=== PATIENT | male | born 1990 | race Two or more races ===

== ENCOUNTER 2025-02-11 01:54 | Emergency (ER) | payer OTHER ==
[~2025-02-11] VITALS: Ht 185.4 cm; Wt 96.8 kg
--- NOTE | 2025-02-11 02:46 | ED.PDOC ---
GI ASSESSMENT HPI Comments 34-year-old male who came to emergency room to the abdominal pain. Patient denies any medical problems, denies any abdominal surgeries. Patient known alcohol drinker, has been binge drinking the past 4-5 days, using marijuana and nicotine. At around 1:00 a.m. today, patient woke up and he started having epig astric abdominal pain, sharp, burning, radiating to both flanks, in associated with bouts of nausea and vomiting. States pain is progressively worsening. Chief Complaint: Abdominal Pain Time Seen by MD: 02:44 Reviewed Notes: Nurses Notes Allergies: Coded Allergies: Penicillins (Verified Allergy, Unknown, 02/11/25) Information Source: Patient, Spouse Mode of Arrival: Ambulatory Timing: Hours Duration: Since onset Prehospital treatment: None Quality: Burning, Sharp Vomitus: Watery Stool: Normal Severity: Moderate Recent: Ingestion of ETOH Pain Location: Epigastric Modifying Factors: Nothing Associated sign and symptoms: Nausea, Vomiting, Abdominal Pain Review of Systems REVIEW OF SYSTEMS: No fever, no chills, or fatigue HEENT: No sore throat, no earache, no congestion, no neck pain. Cardiac: No chest pain. No palpitations. Lungs: No shortness of breath, no cough. GI: (+) nausea, (+) vomiting, no diarrhea, no constipation, (+) abdominal pain : No dysuria, frequency, or urgency. No hematuria. Musculoskeletal: No joint pain , no joint swelling, no extremity edema. Skin: No rash, no itching. Neuro: No headache, no dizziness, no weakness Vital Signs Vital Signs Date Time Temp Pulse Resp B/P (MAP) Pulse Ox O2 Delivery O2 Flow Rate FiO2 02/11/25 08:03 100 16 117/65 (82) 95 02/11/25 07:38 98.2 98.2 02/11/25 07:35 Room Air* 0 21 Physical Exam General: Awake, alert and oriented. Patient appears uncomfortable Skin: Skin in warm, dry and intact. Appropriate color for ethnicity. Nailbeds pink with no cyanosis. HEENT: The head is normocephalic and atraumatic. Conjunctivae are clear without exudates or hemorrhage. Sclera is non-icteric. EOM are intact. No signs of ny stagmus. Eyelids are normal in appearance without swelling or lesions. Oral mucosa is pink and moist Neck: The neck is supple with normal range of motion. No JVD. Cardiac: Heart rate and rhythm are normal. No murmurs, gallops, or rubs are auscultated. Respiratory: No signs of respiratory distress. Lung sounds are clear in all lobes bilaterally without rales, rhonchi, or wheezes. Abdominal: Epigastric tenderness to palpation with guarding. No abdominal distention. Bowel sounds are present and normoactive in all four quadrants. Extremities: Upper and lower extremities are atraumatic in appearance without deformity or edema. Neurological: The patient is awake, alert and oriented to person, place, and time with normal speech. Speech is clear. There is no facial asymmetry. Past Medical History PAST MEDICAL HISTORY: Denies Surgical History: Denies all surgeries Family History Family History: Reviewed,noncontributory to illness Social History Smoker: Non-Smoker Alcohol: Heavy Drugs: Marijuana Lives In: Home Was a procedure done? Was a procedure done?: No GI differential Dx Differential Diagnosis: Appendicitis, Aortic dissection, Cholecystitis, Diverticular disease, Esophageal rupture, Esophagitis, Gastritis/PUD, Gastroenteritis, GI hemorrhage, Hepatitis, Inflammatory BD, Ischemic Bowel, Pancreatitis, UTI, Urolithiasis, Electrolyte Imbalance, Food Poisoning, Impaction, Anemia, Stress Ulcer, Other X-Ray, Labs, Meds, VS Vital Signs Date Time Temp Pulse Resp B/P (MAP) Pulse Ox O2 Delivery O2 Flow Rate FiO2 02/11/25 08:03 100 16 117/65 (82) 95 02/11/25 07:38 98.2 101 16 105/43 (63) 96 98.2 02/11/25 07:35 101 16 96 Room Air* 0 21 02/11/25 06:50 103 22 133/53 02/11/25 06:30 86 21 128/65 (86) 96 02/11/25 06:04 101 24 133/53 02/11/25 05:15 81 20 96 Nasal Cannula* 2 28 02/11/25 04:30 133/53 02/11/25 04:20 103 19 154/82 (106) 95 02/11/25 04:20 103 19 95 Nasal Cannula* 2 28 02/11/25 04:17 154/82 02/11/25 04:00 105 02/11/25 02:06 98.2 94 18 137/81 (99) 98 98.2 Lab Test 02/11/25 02:30 Range/Units White Blood Count 21.2 H 4.4-10.8 10^3/uL Red Blood Count 5.03 4.5-5.90 10^6/uL Hemoglobin 15.5 13.5-17.5 g/dL Hematocrit 45.2 41.0-53.0 % Mean Corpuscular Volume 89.9 80.0-100.0 fL Mean Corpuscular Hemoglobin 30.7 28.0-32.0 pg Mean Corpuscular Hemoglobin Concent 34.2 32.0-36.0 g/dL Red Cell Distribution Width 13.3 11.8-14.3 % Platelet Count 284 140-450 10^3/uL Mean Platelet Volume 8.2 6.9-10.8 fL Neutrophils (%) (Auto) 87.1 H 37.0-80.0 % Lymphocytes (%) (Auto) 6.1 L 10.0-50.0 % Monocytes (%) (Auto) 6.6 0.0-12.0 % Eosinophils (%) (Auto) 0.1 0.0-7.0 % Basophils (%) (Auto) 0.1 0.0-2.0 % Neutrophils # (Auto) 18.4 H 1.6-8.6 10 ^3/uL Lymphocytes # (Auto) 1.3 0.4-5.4 10 ^3/uL Monocytes # (Auto) 1.4 H 0-1.3 10 ^3/uL Eosinophils # (Auto) 0 0-0.8 10 ^3/uL Basophils # (Auto) 0 0-0.2 10 ^3/uL Nucleated Red Blood Cells 0.0 % Sodium Level 131 L 136-145 mmol/L Potassium Level 3.6 3.5-5.1 mmol/L Chloride Level 97 L 98-107 mmol/L Carbon Dioxide Level 24 20-31 mmol/L Anion Gap 10 5-15 Blood Urea Nitrogen 9 9-23 mg/dL Creatinine 0.98 0.700-1.30 mg/dL Glomerular Filtration Rate Calc 104 >90 mL/min BUN/Creatinine Ratio 9.2 L 10.0-20.0 Serum Glucose 140 H 74-106 mg/dL Calcium Level 9.1 8.7-10.4 mg/dL Total Bilirubin 0.5 0.2-1.0 mg/dL Aspartate Amino Transferase (AST) 17 13-40 U/L Alanine Aminotransferase (ALT) 25 7-40 U/L Alkaline Phosphatase 55 46-116 U/L Total Protein 7.6 5.7-8.2 g/dL Albumin 4.7 3.2-4.8 g/dL Plasma/Serum Blood Alcohol 120.9 H <10 mg/dL Current Medications Medications (Trade) Dose Ordered Sig/Nicolle Route Start Time Stop Time Status Last Admin Ondansetron HCl (Zofran Po) 4 mg ONCE ONCE PO 02/11/25 02:30 02/11/25 02:31 DC 02/11/25 02:47 Al Hydrox/Mg Hydrox/Simethicone (Maalox Plus) 30 ml ONCE ONCE PO 02/11/25 02:30 02/11/25 02:31 DC 02/11/25 02:48 Lidocaine HCl (Xylocaine 2% Viscous) 10 ml ONCE ONCE PO 02/11/25 02:30 02/11/25 02:31 DC 02/11/25 02:48 Sodium Chloride 1,000 ml @ 1,000 mls/hr Q1H ONCE IV 02/11/25 04:00 02/11/25 04:59 DC 02/11/25 04:17 Metoclopramide HCl (Reglan Injection) 5 mg ONCE ONCE IV 02/11/25 04:00 02/11/25 04:01 DC 02/11/25 04:17 Levofloxacin/ Dextrose 100 ml @ 100 mls/hr ONCE ONCE IV 02/11/25 04:00 02/11/25 04:59 DC 02/11/25 04:00 Metronidazole 100 ml @ 100 mls/hr ONCE ONCE IV 02/11/25 04:00 02/11/25 04:59 DC 02/11/25 04:17 Fentanyl Citrate 25 mcg ONCE ONCE IV 02/11/25 04:00 02/11/25 04:01 DC 02/11/25 04:17 Fentanyl Citrate 25 mcg ONCE ONCE IV 02/11/25 04:30 02/11/25 04:31 DC 02/11/25 04:30 Acetaminophen (Ofirmev) 1,000 mg ONCE ONCE IV 02/11/25 04:30 02/11/25 04:31 DC 02/11/25 04:30 Sodium Chloride 1,000 ml @ 130 mls/hr Q7H42M ONCE IV 02/11/25 05:45 02/11/25 13:26 02/11/25 06:06 Hydromorphone HCl (Dilaudid Injection) 0.5 mg ONCE ONCE IV 02/11/25 06:00 02/11/25 06:01 DC 02/11/25 06:04 Exam: CT CT AB PEL WO CON-NO ORAL OR IV History: ABDOMINAL PAIN Comparison Study: None Technique: Multidetector spiral CT of the abdomen was performed from lung bases to pubic symphysis. Imaging was performed without IV contrast. Axial, coronal and sagittal multiplanar reformats were obtained from the axial data set by the technologist. Radiation Dose : 1. Abdomen/Pelvis: CTDIvol 9.77 mGy, DLP 645.61 mGy*cm. Findings: Evaluation of solid organs is limited due to lack of intravenous contrast use. Lung Bases: Moderate pneumomediastinum noted with gas tracking along the extent of the visualized fluid-filled esophagus and adjacent to the gastroesophageal junction above the level of the diaphragm. Trace left pleural effusion. The lungs bases are otherwise clear without evidence of consolidation. Normal heart size. No pleural or pericardial effusion. Liver: The liver is normal in size. No focal lesions. Gallbladder and Biliary Tree: Unremarkable Spleen: Unremarkable Pancreas: The pancreas is grossly normal in appearance. Adrenal Glands: Unremarkable Kidneys: Kidneys are grossly normal without calculi or hydronephrosis. Bladder: Grossly unremarkable for degree of distention. Bowel: The stomach is distended and fluid filled. Small bowel and colon are normal in caliber and distribution. The appendix is not visualized; however, no secondary findings of acute appendicitis identified. Ascites: Absent Lymphadenopathy: No mesenteric, retroperitoneal or periportal lymphadenopathy. Abdominal Wall and Mesentery: Unremarkable. Vasculature: The visualized abdominal aorta is normal in size and caliber. Evaluation of abdominal and pelvic vessels is limited due to lack of intravenous contrast. Pelvic Organs: Unremarkable Musculoskeletal: No aggressive focal bony lesions, acute fractures or dislocation. IMPRESSION: 1. Pneumomediastinum and extraluminal gas surrounding the gastroesophageal junction, consistent with perforation of the hollow viscus scondary to esophageal rupture. 2. These findings were discussed with and acknowledged by Dr. Canales of the emergency department at 3:46 a.m. On February 11, 2025. [place] approved for the patient to be transferred [id number]. Time of 1ST Reevaluation: 02:40 Reevaluation 1ST: Unchanged Patient Education/Counseling: Diagnosis, Treatment, Other (Need for transfer) Family Education/Counseling: Diagnosis, Treatment, Other (Need for transfer) Departure 1 Departure Time of Disposition: 04:44 Impression: Primary Impression: Esophageal rupture Additional Impression: Pneumomediastinum Disposition: 02 SHORT TERM HOSPITAL Condition: Guarded Comments 34-year-old male who presented to the emergency department with nausea vomiting, severe epigastric abdominal pain. CT scan suggestive of esophageal rupture with pneumomediastinum at the level of the GE junction. Patient vital signs stable. Antibiotics, IV fluids, antiemetics and pain control initiated in the emergency department. Discussed with Dr. Forman, GI. Recommendation is transferred to higher level of care as GI at this facility does not manage esophageal ruptures. There is no CT surgery available either for backup. Recommendation is IV fluids, antibiotics, PPI, keep patient NPO. (@0352) [facility]. All three hospitals at [facility]. Discussed with Dr. Baker, CT surgeon at [facility] in [place]. She recommends transfer to another facility as advanced GI is not available (@04:28) Discussed with Dr. Baker. She states advanced GI is available and she will accept patient for transfer (@04:42) Discussed with Dr. Purvis, ER provider at [facility] (@04:50) Extensive evaluation was performed in attempt to identify or rule out: (See differential diagnosis section) The following tests were ordered, and results were reviewed by me and discussed with patient: (See diagnostic results section) The following test were independently interpreted by me: N/A I reviewed and agreed with the following test results read by other providers: N/A I reviewed the following notes from the pt's past medical encounters: N/A Additional information was gathered from interviewing the following independent historians: Patient's girlfriend at bedside Discussion of management or test interpretation with external physician/other qualified health patient care coordinator: See above Addressed an acute or chronic illness that poses a threat to life or bodily function: Esophageal rupture Decision regarding hospitalization or escalation of hospital level of care: Risk and benefits of admission for further treatment of patient's condition was considered. Due to patient's current clinical condition, high risk of decline and poor outcome if discharged and need for further inpatient management and monitoring, patient will be admitted to the hospital. Discussed with patient. Drug therapy requiring intensive monitoring for toxicity: N/A Parenteral controlled substances: IV fentanyl, IV morphine Decision regarding elective major surgery with identified patient or procedure risk factors: N/A Decision regarding emergency major surgery: N/A Decision not to resuscitate or to de-escalate care because of poor prognosis: N/A Diagnosis or treatment significantly limited by social determinants of health: N/A Critical Care Note Critical Care Time?: Yes (35 min-critical care time only) Critical care comment: Esophageal rupture. Pneumomediastinum Due to a high probability of clinically significant, life threatening dete rioration, the patient required my highest level of preparedness to intervene emergently and I personally spent this critical care time directly and personally managing the patient. This critical care time included obtaining a history; examining the patient; pulse oximetry; ordering and review of studies; arranging urgent treatment with development of a management plan; evaluation of patient's response to treatment; frequent reassessment; and, discussions with other providers. This critical care time was performed to assess and manage the high probability of imminent, life-threatening deterioration that could result in multi-organ f ailure. It was exclusive of separately billable procedures and treating other patients and teaching time. Please see my other sections and the rest of the note for further information on patient assessment and treatment. Stability Stability form required: No Heart Score Heart Score: Heart Score Response (Comments) Value History N/A 0 EKG N/A 0 Age N/A 0 Risk Factors N/A 0 Troponin N/A 0 Total 0 I personally scribed for MIREILLE CANALES MD ([email or web address]) on 02/11/25 at 02:46. Electronically submitted by Evan Brambila ([employer]). I personally scribed for MIREILLE CANALES MD ([email or web address]) on 02/11/25 at 04:02. Electronically submitted by Evan Bramibla ([email or web address]). MIREILLE CANALES MD Feb 11, 2025 02:46 TARIK GUTIERREZ MD Feb 11, 2025 08:19
[2025-02-11] MEDS: ONDANSETRON ODT 4 MG TAB PO ONE (02:47)
[2025-02-11] MEDS: MAALOX PLUS or MAALOX 30 ML PO ONE (02:48)
[2025-02-11] MEDS: LIDOCAINE VISCOUS 2% 15ML UD PO ONE (02:48)
[2025-02-11 03:02] LABS: Basophils # (auto) 0 10 ^3/uL (0-0.2); Basophils % (auto) 0.1 % (0.0-2.0); Eosinophils # (auto) 0 10 ^3/uL (0-0.8); Eosinophils % (auto) 0.1 % (0.0-7.0); Hematocrit 45.2 % (41.0-53.0); Hemoglobin 15.5 g/dL (13.5-17.5); Lymphocytes # (auto) 1.3 10 ^3/uL (0.4-5.4); Lymphocytes % (auto) 6.1 % (10.0-50.0); Mean Corpuscular Hemoglobin 30.7 pg (28.0-32.0); Mean Corpuscular Hgb Conc. 34.2 g/dL (32.0-36.0); Mean Corpuscular Volume 89.9 fL (80.0-100.0); Monocytes # (auto) 1.4 10 ^3/uL (0-1.3); Monocytes % (auto) 6.6 % (0.0-12.0); Neutrophils # (auto) 18.4 10 ^3/uL (1.6-8.6); Neutrophils % (auto) 87.1 % (37.0-80.0); Platelet Count (auto) 284 10^3/uL (140-450); Red Blood Cells 5.03 10^6/uL (4.5-5.90); Red Cell Distribution Width 13.3 % (11.8-14.3); White Blood Cell 21.2 10^3/uL (4.4-10.8)
--- NOTE | 2025-02-11 03:56 | DVH ---
Exam: CT CT AB PEL WO CON-NO ORAL OR IV History: ABDOMINAL PAIN Comparison Study: None Technique: Multidetector spiral CT of the abdomen was performed from lung bases to pubic symphysis. I maging was performed without IV contrast. Axial, coronal and sagittal multiplanar reformats were obta ined from the axial data set by the technologist. Radiation Dose : 1. Abdomen/Pelvis: CTDIvol 9.77 mGy, DLP 645.61 mGy*cm. Findings: Evaluation of solid organs is limited due to lack of intravenous contrast use. Lung Bases: Moderate pneumomediastinum noted with gas tracking along the extent of the visualized fluid-filled es ophagus and adjacent to the gastroesophageal junction above the level of the diaphragm. Trace left pleural effusion. The lungs bases are otherwise clear without evidence of consolidation. Normal heart size. No pleural or pericardial effusion. Liver: The liver is normal in size. No focal lesions. Gallbladder and Biliary Tree: Unremarkable Spleen: Unremarkable Pancreas: The pancreas is grossly normal in appearance. Adrenal Glands: Unremarkable Kidneys: Kidneys are grossly normal without calculi or hydronephrosis. Bladder: Grossly unremarkable for degree of distention. Bowel: The stomach is distended and fluid filled. Small bowel and colon are normal in caliber and dis tribution. The appendix is not visualized; however, no secondary findings of acute appendicitis ident ified. Ascites: Absent Lymphadenopathy: No mesenteric, retroperitoneal or periportal lymphadenopathy. Abdominal Wall and Mesentery: Unremarkable. Vasculature: The visualized abdominal aorta is normal in size and caliber. Evaluation of abdominal a nd pelvic vessels is limited due to lack of intravenous contrast. Pelvic Organs: Unremarkable Musculoskeletal: No aggressive focal bony lesions, acute fractures or dislocation. IMPRESSION: 1. Pneumomediastinum and extraluminal gas surrounding the gastroesophageal junction, consistent with perforation of the hollow viscus scondary to esophageal rupture. 2. These findings were discussed with and acknowledged by Dr. Canales of the emergency department at 3 :46 a.m. On February 11, 2025. Radiation optimization: All CT scans at this facility use at least one of these dose optimization jd hniques: automated exposure control mA and/or kV adjustment per patient size (includes targeted exam s where dose is matched to clinical indication) or iterative reconstruction.
[2025-02-11] MEDS: levoFLOXacin 500MG 100 ML IV ONE (04:00)
[2025-02-11] MEDS: SODIUM CHLORIDE 0.9% 1,000 ML IV ONE ×2 (04:17→06:06)
[2025-02-11] MEDS: fentaNYL CITRATE 100 MCG/2 ML VL IV ONE ×2 (04:17→04:30)
[2025-02-11] MEDS: metroNIDAZOLE 500MG/100ML 100 ML IV ONE (04:17)
[2025-02-11] MEDS: METOCLOPRAMIDE HCL 5MG/ml INJ 2ml VIAL IV ONE (04:17)
[2025-02-11] MEDS: MORPHINE SULFATE INJ 2 MG/ml SYRG IV ONE (04:18)
[2025-02-11 04:20] VITALS: PULSE 103; RESP 19; O2SAT 95
--- NOTE | 2025-02-11 04:27 | DVH ---
CHEST RADIOGRAPH Indication: esoph rupture Technique: Single frontal view of the chest was obtained COMPARISON: None FINDINGS: Lines and Tubes: None Lungs: Clear Pleura: No effusion. No pneumothorax. Cardiomediastinal contours: Minimal lucency is noted within the right neck and to the left lateral as pect of the superior mediastinum consistent with pneumomediastinum and possible subcutaneous emphysem a. Bones: Unremarkable IMPRESSION: 1. Minimal apparent pneumomediastinum and right neck subcutaneous emphysema consistent with esophagea l rupture.
[2025-02-11] MEDS: ACETAMINOPHEN IV 1000 MG/100ML (10MG/ML) IV ONE (04:30)
[2025-02-11 05:15] VITALS: PULSE 81; RESP 20; O2SAT 96
[2025-02-11 05:22] LABS: Alanine Aminotransferase 25 U/L (7-40); Albumin 4.7 g/dL (3.2-4.8); Alkaline Phosphatase 55 U/L (46-116); Anion Gap 10 (5-15); Aspartate Aminotransferase 17 U/L (13-40); BUN/Creatinine Ratio 9.2 (10.0-20.0); Bilirubin, Total 0.5 mg/dL (0.2-1.0); Blood Urea Nitrogen 9 mg/dL (9-23); Calcium 9.1 mg/dL (8.7-10.4); Carbon Dioxide 24 mmol/L (20-31); Potassium 3.6 mmol/L (3.5-5.1); Total Protein 7.6 g/dL (5.7-8.2)
[2025-02-11 05:25] LABS: Chloride 97 mmol/L (98-107); Glucose 140 mg/dL (74-106); Sodium 131 mmol/L (136-145)
[2025-02-11 05:52] LABS: Blood Alcohol 120.9 mg/dL (<10)
[2025-02-11] MEDS: HYDROMORPHONE HCL 1 MG/ML INJ IV ONE (06:04)
[2025-02-11 07:35] VITALS: PULSE 101; RESP 16; O2SAT 96
[2025-02-11 07:38] VITALS: TEMP 98.2
[2025-02-11 08:03] VITALS: BP 117/65; PULSE 100; RESP 16; O2SAT 95
== END 2025-02-11 09:12 | disposition short-term general hospital (02) ==
LOC: ER 01:54
DX: K22.3 Perforation of esophagus (principal); J98.2 Interstitial emphysema; F12.90 Cannabis use, unspecified, uncomplicated
CPT/HCPCS: 36415; 71045; 74176; 80053; 80320; 85025; 96361; 96365; 96368; 96375; 99291; J1170; J1956; J2270; J2765; J3010; J3490; Q0162; J0131